=== PATIENT | female | born 1945 | race African-American/Black ===

== ENCOUNTER → 2017-10-02 | Outpatient (CLI) | payer OTHER, MEDICARE ==
[~2017-10-02] MED LIST: ASA5UEC PO; ATENOLOL 100MG100 MG PO; ATIVAN0.5 MG PO; ATORVASTATIN CA40 MG PO; BACTRIM DS TAB1 EACH PO; BENADRYL25 MG PO; FOLIC ACID1 MG PO; LIVALO4 MG PO; LOPRESSOR25 PO; METFORMIN HCL500 MG PO; OTHER; PACERONE 200 M200 M1 PO; PANTOPRAZOLE SO40 M1 PO; PEPCID20 MG PO; TOPROL XL25 MG PO; TRAMADOL 50 MG50 MG PO; VASCEPA1 GM PO; VENTOLIN HFA 1818 GM INH; VITAMIN D3400 UNIT PO; ZYRTEC10 M4 PO
[2017-10-02 12:42] LABS: CREATININE 0.9 mg/dL (0.6-1.0)
== END ==
LOC: LABMALL 11:19 → RAD 11:19
PROVIDERS: Internal Medicine Cardiovascular Disease
DX: Z01.818 Encounter for other preprocedural examination (principal); I73.9 Peripheral vascular disease, unspecified; I71.4 Abdominal aortic aneurysm, without rupture; R06.00 Dyspnea, unspecified

== ENCOUNTER 2017-11-07 16:44 | Inpatient (IN) | payer OTHER, MEDICARE ==
[~2017-11-07] VITALS: Ht 167.6 cm; Wt 72.5 kg
--- NOTE | ~2017-11-07 | 2DMMODE ---
[facility] [address] [place] [address] 2 D/M-MODE ECHOCARDIOGRAM Name: MCCARTHYOSVALDO Room #: 213-P [facility] IN M.R.#: [id number] Admission: 11/07/17 Attend Phys: Jl Johnson, Discharge: Date of : 47 Date of Service: 11/10/17 1229 Report #: [id number] THIS REPORT FOR: //name// APPROVED REPORT Study performed: 11/10/2017 11:25:37 EXAM: Comprehensive 2D, Doppler, and color-flow Echocardiogram Patient Location: Bedside Room #: 213 Status: routine BSA: 1.81 HR: 63 bpm Rhythm: NSR Other Information Study Quality: Adequate Indications Pre-Op Pre-op CABG, NSTEMI, Hx: CAD, Stent, HTN, HLD 2D Dimensions RVDd: 30.48 mm LVEF(%): 52.68 (>50%) IVSd: 10.21 (7-11mm) LVOT Diam: 21.49 (18-24mm) LVDd: 49.28 mm PWd: 11.28 (7-11mm) Ascending Ao: 32.91 (22-36mm) LVDs: 35.91 (25-40mm) Aortic Root: 31.63 mm Roche's LVEF: 52.68 % Volumes Left Atrial Volume (Systole) Single Plane 4CH: 31.65 mL Single Plane 2CH: 34.19 mL LA ESV Index: 23.00 mL/m2 Aortic Valve AoV Peak Nadeem.: 1.02 m/s AO Peak Gr.: 4.18 mmHg LVOT Max P.92 mmHg LVOT Max V: 0.85 m/s PEPE Vmax: 3.03 cm2 Mitral Valve E/A Ratio: 0.9 [facility] [place] [address] 2 D/M-MODE ECHOCARDIOGRAM Name: OSVALDO MCCARTHY Room #: 213-P [facility] IN ..#: [id number] Admission: 11/07/17 Attend Phys: Jl Johnson, Discharge: Date of : 47 Date of Service: 11/10/17 1229 Report #: [id number] MV Decel. Time: 196.74 ms MV E Max Nadeem.: 0.52 m/s MV A Nadeem.: 0.56 m/s MV PHT: 57.06 ms IVRT: 129.18 ms Pulmonary Valve PV Peak Nadeem.: 0.95 m/s PV Peak Gr.: 3.61 mmHg Pulmonary Vein P Vein S: 0.52 m/s P Vein A: 0.25 m/s P Vein D: 0.33 m/s P Vein A Dur.: 129.2 msec P Vein S/D Ratio: 1.58 Tricuspid Valve RAP Estimate: 5.00 mmHg Left Ventricle The left ventricle is normal size. There is normal left ventricular wall thickness. Left ventricular systolic function is borderline. LVEF is 50%. Grade I - abnormal relaxation pattern. Right Ventricle The right ventricle is normal size. The right ventricular systolic function is normal. Atria The left atrium size is normal. The right atrium size is normal. Aortic Valve Aortic valve is calcified. No aortic regurgitation is present. There is no aortic valvular stenosis. Mitral Valve There is mitral annular calcification. Mild mitral regurgitation. No evidence of mitral valve stenosis. Tricuspid Valve The tricuspid valve is normal in structure. Trace tricuspid regurgitation. Unable to assess PA pressure. Pulmonic Valve The pulmonary valve is normal in structure. [place] [address] 2 D/M-MODE ECHOCARDIOGRAM Name: OSVALDO MCCARTHY Dianne Room #: 213-P [facility] IN .R.#: [id number] Admission: 11/07/17 Attend Phys: Jl Johnson, Discharge: Date of : 47 Date of Service: 11/10/17 1229 Report #: [id number] Great Vessels The aortic root is normal in size. The ascending aorta is normal in size. IVC is normal in size and collapses >50% with inspiration. Pericardium There is no pericardial effusion. <Conclusion> The left ventricle is normal size. Left ventricular systolic function is borderline. LVEF is 50%. Grade I - abnormal relaxation pattern. The left atrium size is normal. Aortic valve is calcified. There is no aortic valvular stenosis. Mild mitral regurgitation. Trace tricuspid regurgitation. Unable to assess PA pressure. The aortic root is normal in size. There is no pericardial effusion. <ELECTRONICALLY SIGNED> By: Jl Johnson MD, FACC 11/10/17 1229 1229 1229 Jl Johnson MD, FACC /INF
--- NOTE | ~2017-11-07 | EKG ---
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 No previous ECG available for comparison Electronically Signed On 11-08-2017 12:20:40 CDT by Donavon Marcus [email or web address] <ELECTRONICALLY SIGNED> By: Donavon Marcus MD 11/08/17 1220 2 2 Donavon Marcus MD /CHIQUI
--- NOTE | ~2017-11-07 | CATHLAB ---
[facility] [place] [address] INVASIVE PROCEDURE REPORT Name: OSVALDO MCCARTHY Room #: 242-P [facility] IN ..#: [id number] Admission: 11/07/17 Attend Phys: Jl Johnson, Discharge: Date of : 47 Date of Service: 11/12/17 1436 Report #: [id number] THIS REPORT FOR: //name// APPROVED REPORT Study performed: 11/10/2017 07:35:59 Patient Details Patient Status: In-Patient Room #: 213 The patient is a 72 year-old female Event Personnel Jl Johnson Importer Or Exporter, Arjun Thrasher RN, Tanja Martinez RTR, Dm Mckinnon David Monitor Procedures Performed Art Access - R femoral artery* Left Heart Cath w/or w/o Coronaries [id number] [facility] [address] Initial Mod Sed Same Phys/QHP 5y 883198 Hemostasis with Manual pressure Indication Chest pain Procedure Narrative The Right Groin^ was infiltrated with 1% Lidocaine subcutaneous anesthesia. A PINNACLE 6FR Sheath #[id number] sheath was inserted into the RFA^. Coronary angiography was performed using coronary diagnostic catheters. The right coronary system was accessed and visualized with a JR4 catheter. The left coronary system was accessed and visualized with a JL4 catheter. The left ventricle was accessed and visualized with a Pigtail catheter. Left ventriculogram was performed in 30 degree projection. An aortogram of the abdominal aorta was performed. Pre-demployment femoral angiogram was performed . Hemostasis was obtained with manual pressure following sheath removal without any complications. The patient tolerated the procedure well and there were no complications associated with the procedure. There was no hematoma. Intraoperative Conscious Sedation Sedation start time: 07:48 Case end Time: 08:15 Fentanyl 50 mcg Versed 1.5 mg Fluoro Time: 2.04 minutes Dose: 328 mGy [facility] [place] [address] INVASIVE PROCEDURE REPORT Name: MCCARTHYOSVALDO Room #: 242-P [facility] IN [facility]#: [id number] Admission: 11/07/17 Attend Phys: Jl Johnson, Discharge: Date of : 47 Date of Service: 11/12/17 1436 Report #: [id number] Contrast Type and Amount: Omnipaque 130 ml Hemodynamics The aortic pressure is 111/57 mmHg with a mean of 78 mmHg. The left ventricular pressure is 135/7 mmHg with a mean of mmHg. The left ventricular end diastolic pressure is 21 mmHg. Conclusion #1 left ventricle subtle anterior lateral wall leg EF 50% #2 small infrarenal aortic aneurysm distal aorta at the bifurcation evaluate noninvasively #3 LAD is proximally occluded in the's previously placed stent from 2003. She was a long stent there is faint collateralization from left to left filling. #4 The left main is mildly disease giving rise to the LAD and circumflex #5 circumflex OM has a eccentric lesion proximally of 40-50% at the first OM takeoff. Mild distal disease nondominant system but moderate distribution left to left collaterals to the LAD #6 dominant right coronary artery mild proximal calcification 30% irregularity giving rise to ENOC and PDA PDA has an eccentric 70% ostial lesion there is right to left collateralization of the distal half of the LAD Recommendations and plan of vascular closure by manual protocol. Transfer to CCU would obtain CT surgical consultation here. This diabetic female best served with arterial grafts to LAD and PDA. Hemodynamically stable and pain-free upon transfer <ELECTRONICALLY SIGNED> By: Jl Johnson MD, FACC 11/12/17 1436 1436 143 Jl Johnson MD, FACC /INF
--- NOTE | ~2017-11-07 | EKG ---
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 : 1945 Requested By: Christel Urena Order Number: [id number] MD: Sal Villalobos Measurements Intervals [place] Rate: 61 P: 46 CT: 154 QRS: 48 QRSD: 117 T: 89 QT: 489 QTc: 493 Interpretive Statements Sinus rhythm Nonspecific intraventricular conduction delay Probable anteroseptal infarct, recent ST elevation, inferior leads Lateral leads are also involved Compared to ECG 11/09/2017 09:37:05 No significant change was found Electronically Signed On 11-11-2017 8:21:50 CDT by Sal Villalobos [email or web address] <ELECTRONICALLY SIGNED> By: Sal Villalobos MD, [facility] 11/11/17 0821 1 1 Sal Villalobos MD, [facility] /EPI
--- NOTE | ~2017-11-07 | EKG ---
[address] [address] ELECTROCARDIOGRAM REPORT Name: OSVALDO MCCARTHY Room #: 213- ADM IN M.R.#: [id number] Admission: 11/07/17 Attend Phys: Jl Johnson MD, Discharge: Date of : 47 Report #: [id number] THIS REPORT FOR: //name// [facility] Test Date: 2017-11-07 Test Time: 19:09:59 Pat Name: OSVALDO MCCARTHY Department: Room: 213 Gender: F Hospitality Ambassador: Krista ARCE : 1945 Requested By: Jl Johnson Order Number: [id number] MD: Donavon Marcus Measurements Intervals [place] Rate: 74 P: -14 VA: 141 QRS: 26 QRSD: 86 T: 108 QT: 390 QTc: 433 Interpretive Statements Sinus rhythm Anteroseptal infarct, age indeterminate Minimal ST elevation, inferior leads No previous ECG available for comparison Electronically Signed On 11-08-2017 12:10:49 CDT by Donavon Marcus [email or web address] <ELECTRONICALLY SIGNED> By: Donavon Marcus MD 11/08/17 1210 1909 08 Donavon Marcus MD /EPI
--- NOTE | ~2017-11-07 | EKG ---
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 Electronically Signed On 11-12-2017 7:45:32 CDT by Donavon Marcus [email or web address] <ELECTRONICALLY SIGNED> By: Donavon Marcus MD 11/12/17 0745 0631 0 Donavon Marcus MD /CHIQUI
--- NOTE | ~2017-11-07 | O ---
[facility] [place] [address] OPERATIVE REPORT Name: OSVALDO MCCARTHY Room #: 150-12 ADM IN M.R.#: [id number] Admission: 11/07/17 Attend Phys: Jl Johnson MD, Discharge: Date of : 47 Report #: [id number] THIS REPORT FOR: //name// CC: Jl Sullivan DATE OF SERVICE: 11/11/2017 PREOPERATIVE DIAGNOSES: 1. Coronary artery disease. 2. Unstable angina. FINAL DIAGNOSES: 1. Coronary artery disease. 2. Unstable angina. OPERATIVE PROCEDURE PERFORMED: Coronary artery bypass grafting x 2 with left internal mammary artery to left anterior descending, saphenous vein graft to the posterior descending artery. SURGEON: Mati Miranda MD ASSISTANTS: Dawood Torres SA and Aylin Pollock SA. ANESTHESIA: General. OPERATIVE INDICATIONS: The patient is a 72-year-old female with known history of previous coronary artery disease, having undergone a stent to the LAD approximately 18 years ago. The patient has recently presented with symptoms consistent with unstable angina. She did see her primary care physician and had an outpatient troponin level drawn, which was slightly elevated. She was subsequently hospitalized and underwent evaluation with left heart catheterization suggesting evidence of 2-vessel coronary artery disease involving the LAD and the takeoff of the PDA. She is brought to the operating room now for coronary artery bypass grafting after informed consent has been obtained. OPERATIVE SUMMARY: The patient was brought to the operating room, placed on the OR table in supine position after anesthesia was induced via general endotracheal route. Monitoring lines had been positioned, the patient was prepped and draped in sterile fashion with chlorhexidine. A median sternotomy incision was made. Left internal mammary artery was harvested in standard fashion. Concurrently, saphenous vein was harvested from the left lower extremity using endoscopic techniques. We then opened the pericardium and systemically anticoagulated the patient with heparin. Cannulae were placed in ascending aorta and the right atrium. An antegrade cardioplegia cannula was [facility] [address] [place] [address] OPERATIVE REPORT Name: OSVALDO MCCARTHY [facility]#: [id number] Admission: 11/07/17 Attend Phys: Jl Johnson MD, Discharge: Date of : 47 Report #: [id number]. Cardiopulmonary bypass was begun and under low flow conditions the aorta was cross clamped, the heart was arrested with cold antegrade cardioplegia approximately 1200 mL. This was augmented with topical ice slush. Diastolic arrest was achieved and maintained throughout this operation with intermittent doses of cold antegrade cardioplegia as well as cardioplegia given down grafts and topical ice slush. We first opened up the posterior descending coronary artery. It is about a 1.8 mm vessel. We were able to pass a 1.5 mm probe proximally into the right coronary artery. We could tell there was stenosis present, but the probe was able to be passed in the right coronary artery from the PDA. We then constructed a distal anastomosis in end-to-side fashion with 7-0 Prolene utilizing the reverse saphenous vein graft. Next, we dissected the LAD. It was intramyocardial in its mid segment, so we opened it at the distal aspect of its mid segment. This was a large vessel at this site, about 2 mm in size. The mammary was brought on the field and prepared. It had excellent flow in it. The anastomosis was carried out in end-to-side fashion with 7-0 Prolene and the pedicle was tacked to the epicardium with 6-0 Prolene. We then constructed the proximal anastomosis of the saphenous vein graft to the ascending aorta using 6-0 Prolene after a 4.8 punch aortotomy was created. We then gave warm cardioplegia antegrade taking care to deair the ascending aorta and the vein graft. Under low flow conditions the aortic crossclamp was released to begin the period of reperfusion. The patient was rewarmed to 37 degree centigrade and 3 successive doses of calcium and a single dose of magnesium were given over 3-5 minute intervals. Atrial and ventricular pacing wires were placed. The patient was initially atrial lead paced at a rate of 80 beats per minute. After suitable period of reperfusion, the lungs were reinflated. The patient was weaned from cardiopulmonary bypass without inotropic support. Protamine was given to reverse the heparin, decannulation was effected. Once satisfactory hemostasis was achieved, we placed two 32-Turkmen chest tubes in anterior mediastinum and 24 Maynor in the left pleural space. They were all brought through separate stab incisions. The sternum was closed with #7 wire. The fascia, subcutaneous and skin were closed in multiple layers with absorbable suture. The procedure completed. The patient was taken to the ICU in stable condition. Cardiopulmonary bypass time and crossclamp times are not available to me at the time of this dictation. By: 1135 [id number] /nt
--- NOTE | ~2017-11-07 | EKG ---
[address] [address] ELECTROCARDIOGRAM REPORT Name: OSVALDO MCCARTHY Room #: 242-P [facility] IN .R.#: [id number] Admission: 11/07/17 Attend Phys: Jl Johnson MD, Discharge: Date of : 47 Report #: [id number] THIS REPORT FOR: //name// [facility] Test Date: 2017-11-11 Test Time: 16:35:14 Pat Name: OSVALDO MCCARTHY Department: Room: [facility] Gender: F Referral Clerk: Krista ARCE : 1945 Requested By: Christel Urena Order Number: [id number] MD: Sal Villalobos Measurements Intervals [place] Rate: 78 P: 71 MA: 155 QRS: 57 QRSD: 109 T: 121 QT: 444 QTc: 506 Interpretive Statements Sinus rhythm Probable anterolateral infarct, recent Abnormal T, consider ischemia, lateral leads Minimal ST elevation, inferior leads Prolonged QT interval Compared to ECG 11/11/2017 06:12:11 Lateral T wave inversion is more pronounced Electronically Signed On 11-11-2017 16:47:50 CDT by Sal Villalobos [email or web address] <ELECTRONICALLY SIGNED> By: Sal Villalobos MD, [facility] 11/11/17 1647 1635 1635 Sal Villalobos MD, [facility] /EPI
--- NOTE | ~2017-11-07 | H ---
[facility] [place] [address] HISTORY AND PHYSICAL Name: OSVALDO MCCARTHY Room #: 242-P ADM IN M.R.#: [id number] Admission: 11/07/17 Attend Phys: Jl Johnson MD, Discharge: Date of : 47 Report #: [id number] THIS REPORT FOR: //name// CC: Jl Sullivan MD DATE OF SERVICE: 11/07/2017 HISTORY OF PRESENT ILLNESS: The patient is a 71-year-old female well known to myself. She has had some recurrent chest pain, pressure, and shortness of breath. We had evaluated her in the office a couple of weeks ago with an echo Doppler that was unchanged and no EKG changes. My understanding is that she had an ER visit last weekend and was ruled out and sent home. She is still having intermittent shortness of breath and dyspnea and this is concerning. This is similar to what she had prior to her LAD stent that was placed in [facility] in 1999. Stress test was last year that was negative. There has not been a recent stress test. In any event, an outpatient troponin was drawn and it was 1.1, the troponin T. Dr. Sullivan had drawn some laboratory work and that lab is in the system. I will admit her today because of the abnormal lab and to repeat the troponin and EKG. She is pain free except for marked decrease in dyspnea. LABORATORY DATA: H and H is 14 and 43. Amylase was 44, lipase was 44. Creatinine was 22. Glucose mildly elevated 216. Liver function tests were normal. The potassium was 4.0. Troponin T was reported by Dr. Sullivan. It is noted here 1.18, which is elevated. PAST MEDICAL HISTORY: Positive for coronary artery disease with a stent to the LAD in 1999, hypertension, hypercholesterolemia, right total hip arthroplasty, tubal ligation, some DJD, some PSVT with minimal recurrence, hypertension, hypercholesterolemia. MEDICATIONS: Atenolol 100, folic acid probiotic and 1 capsule b.i.d. SOCIAL HISTORY: She is , lot of stress with children who are adopted and older. 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 No caffeine. No tobacco, no alcohol. FAMILY HISTORY: Mother had colon cancer. REVIEW OF SYSTEMS: Essentially negative except for as stated above, some intermittent constipation. ALLERGIES: ERYTHROMYCIN, KEFLEX, AND PENICILLINS. [facility] [address] [place] [address] HISTORY AND PHYSICAL Name: OSVALDO MCCARTHY Room #: 242-P [facility]#: [id number] Admission: 11/07/17 Attend Phys: Jl Johnson MD, Discharge: Date of : 47 Report #: [id number] PHYSICAL EXAMINATION: GENERAL: Pleasant and alert. VITAL SIGNS: Blood pressure was 130/84, pulse is 60. HEENT: Eyes reveal xanthelasmas. Pharynx is clear. NECK: Shows preserved upstrokes without JVD or bruits. LUNGS: Clear. CARDIOVASCULAR: Regular rate and rhythm, S1 and S2, without murmur or gallop. ABDOMEN: Soft, slightly tender in the epigastric. EXTREMITIES: Have no edema. Distal pulses were intact. NEUROLOGIC: Nonfocal. SKIN: Warm and dry without xanthoma or ulcer. MUSCULOSKELETAL: No gross joint deformity. ASSESSMENT: 1. Recurrent chest pain consistent with angina (elevated troponin T), possible non-ST elevation myocardial infarction. 2. Hypertension. 3. Hypercholesterolemia. 4. Paroxysmal supraventricular tachycardia. RECOMMENDATIONS AND PLAN: We will continue the medications. I am repeating laboratory work including troponin, EKG now in the a.m. She is pain free. We will add aspirin to the regimen and plan on cardiac catheterization Friday a.m. to delineate the anatomy. With these multiple recurrent admissions and history, would definitely need to delineate the anatomy. If she would have recurrent pain and pressure, certainly could proceed on with angiography sooner. Thank you for asking me to assist in the care of this patient. <ELECTRONICALLY SIGNED> By: Jl Johnson MD, FACC 11/11/17 1302 1834 190 Jl Johnson MD, FACC /nt
--- NOTE | ~2017-11-07 | EKG ---
[address] [address] ELECTROCARDIOGRAM REPORT Name: OSVALDO MCCARTHY Dianne Room #: 213- ADM IN M.R.#: [id number] Admission: 11/07/17 Attend Phys: Jl Johnson MD, Discharge: Date of : 47 Report #: [id number] THIS REPORT FOR: //name// [facility] Test Date: 2017-11-09 Test Time: 09:37:05 Pat Name: OSVALDO MCCARTHY Department: Room: 213 Gender: F Gravity Manager: EMEKA : 1945 Requested By: Michelle Benítez Order Number: [id number] MD: Donavon Marcus Measurements Intervals [place] Rate: 70 P: 0 AK: 164 QRS: 42 QRSD: 125 T: 101 QT: 463 QTc: 500 Interpretive Statements Sinus rhythm Probable anterior infarct, age indeterminate Minimal ST elevation, inferior leads Lateral leads are also involved Compared to ECG 11/08/2017 09:13:32 No significant changes Electronically Signed On 11-09-2017 19:53:59 CDT by Donavon Marcus [email or web address] <ELECTRONICALLY SIGNED> By: Donavon Marcus MD 11/09/17 1953 0937 Donavon Marcus MD /EPI
[2017-11-07 19:37] LABS: HEMOGLOBIN 13.6 gm/dL (12.0-15.0); MCH 30.3 pg (26.0-34.0); MCHC 33.9 g/dL (28.0-37.0); MCV 89.3 fL (80.0-100.0); RBC 4.48 mil/uL (4.20-5.00); RDW 12.7 % (10.5-14.5); WBC 5.6 thou/uL (4.0-11.0)
[2017-11-07 19:43] VITALS: BP 97/60
[2017-11-07 19:55] LABS: CALCIUM 9.4 mg/dL (8.5-10.1); CREATININE 1.1 mg/dL (0.6-1.0); POTASSIUM 3.7 mmol/L (3.5-5.1)
[2017-11-07 19:56] LABS: TROPONIN-I 1.56 ng/mL (<0.06)
[2017-11-07] MEDS ORDERED: ATIVAN0.5 MG PO (20:38)
[2017-11-07] MEDS ORDERED: BACTRIM DS TAB1 EACH PO (20:41)
[2017-11-07] MEDS ORDERED: METFORMIN HCL500 MG PO (20:43)
[2017-11-07] MEDS ORDERED: VASCEPA1 GM PO (20:46)
[2017-11-07] MEDS ORDERED: LIVALO4 MG PO (20:47)
[2017-11-07] MEDS ORDERED: ATENOLOL 100MG100 MG PO (20:53)
[2017-11-07] MEDS ORDERED: BENADRYL25 MG PO (20:57)
[2017-11-07] MEDS ORDERED: ZYRTEC10 M4 PO (20:58)
[2017-11-07] MEDS ORDERED: FOLIC ACID1 MG PO (21:00)
[2017-11-07] MEDS ORDERED: VITAMIN D3400 UNIT PO (21:02)
[2017-11-07] MEDS ORDERED: PEPCID20 MG PO (21:05)
[2017-11-07 23:05] VITALS: BP 100/67
[2017-11-08 04:54] VITALS: BP 130/79
[2017-11-08 07:55] VITALS: BP 113/64
[2017-11-08 11:45] VITALS: BP 116/67
[2017-11-08 15:45] VITALS: BP 127/73
[2017-11-08 19:22] VITALS: BP 105/59
[2017-11-09 00:45] VITALS: BP 119/70
[2017-11-09 04:57] VITALS: BP 117/67
[2017-11-09 07:30] VITALS: BP 134/114
[2017-11-09 08:38] LABS: GLYCOHEMOGLOBIN (HGB A1C) 10.9 % (4.8-5.6)
[2017-11-09 12:05] VITALS: BP 105/65
[2017-11-09 15:30] VITALS: BP 107/63
[2017-11-09 19:50] VITALS: BP 109/66
[2017-11-10] VITALS (11 sets, daily range): BP systolic 91–140; BP diastolic 55–91
[2017-11-10 05:32] LABS: CALCIUM 8.9 mg/dL (8.5-10.1); POTASSIUM 3.8 mmol/L (3.5-5.1)
[2017-11-10 20:28] LABS: URINE BILIRUBIN NEGATIVE (Negative); URINE BLOOD NEGATIVE (Negative); URINE CLARITY CLEAR; URINE COLOR YELLOW; URINE GLUCOSE-RANDOM* NEGATIVE (Negative); URINE KETONES NEGATIVE (Negative); URINE LEUKOCYTES-REFLEX NEGATIVE (Negative); URINE NITRITE-REFLEX NEGATIVE (Negative); URINE PROTEIN (DIPSTICK) NEGATIVE (Negative); URINE SPECIFIC GRAVITY 1.015 (1.005-1.035); URINE UROBILINOGEN 0.2 E.U./dl (0.2-1.0)
[2017-11-11] VITALS (40 sets, daily range): BP systolic 81–186; BP diastolic 44–102
[2017-11-11 05:08] LABS: ABSOLUTE NEUTROPHILS 2.7 thou/uL (1.4-8.2); BASOPHILS 0.7 % (0.0-2.0); EOSINOPHILS 2.5 % (0.0-3.0); HEMATOCRIT 37.6 % (37.0-47.0); HEMOGLOBIN 12.6 gm/dL (12.0-15.0); LYMPHOCYTES 33.6 % (24.0-44.0); MCH 30.3 pg (26.0-34.0); MCHC 33.5 g/dL (28.0-37.0); MCV 90.3 fL (80.0-100.0); MONOCYTES 6.9 % (1.0-8.0); PLATELET COUNT 170 thou/uL (150-400); POLYS 56.3 % (36.0-66.0); RBC 4.17 mil/uL (4.20-5.00); WBC 4.8 thou/uL (4.0-11.0)
[2017-11-11 05:34] LABS: ALBUMIN 2.4 g/dL (3.4-5.0); TOTAL BILIRUBIN 0.5 mg/dL (<0.1-1.0); TOTAL PROTEIN 6.1 g/dL (6.4-8.2)
[2017-11-11 07:00] LABS: LARGE PLATELETS OCCASIONAL; POLYCHROMASIA 1+
[2017-11-11 11:00] LABS: MCHC 34.5 g/dL (28.0-37.0); MCV 90.1 fL (80.0-100.0); RBC 2.62 mil/uL (4.20-5.00); RDW 12.7 % (10.5-14.5); WBC 4.5 thou/uL (4.0-11.0)
[2017-11-11 11:08] LABS: HEMOGLOBIN 8.1 gm/dL (12.0-15.0)
[2017-11-11 11:09] LABS: HEMATOCRIT 23.6 % (37.0-47.0)
[2017-11-11 11:13] LABS: INR 1.5
[2017-11-11 11:17] LABS: APTT 33.1 Seconds (24.5-32.8); FIBRINOGEN 256.4 mg/dL (210-360); PROTIME 15.6 Seconds (9.3-11.4)
[2017-11-11 11:32] LABS: POC BE 3 mmol/L (-2.0 to +3.0); POC CA IONIZED 4.4 mg/dL (4.5-5.3); POC GLUCOSE 161 mg/dL (70-99); POC HCO3 26.7 mmol/L (22.0-26.0); POC HEMOGLOBIN 9.9 g/dL (12.0-15.0); POC POTASSIUM 3.6 mmol/L (3.5-5.1); POC SODIUM 139 mmol/L (136-145); POC pCO2 36.9 mmHg (35.0-45.0); POC pH 7.468 (7.360-7.450)
[2017-11-11 11:32] LABS: POC BE 1 mmol/L (-2.0 to +3.0); POC CA IONIZED 4.1 mg/dL (4.5-5.3); POC GLUCOSE 144 mg/dL (70-99); POC HCO3 25.8 mmol/L (22.0-26.0); POC HEMOGLOBIN 8.2 g/dL (12.0-15.0); POC POTASSIUM 4.1 mmol/L (3.5-5.1); POC SODIUM 140 mmol/L (136-145); POC pCO2 38.8 mmHg (35.0-45.0)
[2017-11-11 11:32] LABS: POC BE 0 mmol/L (-2.0 to +3.0); POC CA IONIZED 3.7 mg/dL (4.5-5.3); POC GLUCOSE 140 mg/dL (70-99); POC HCO3 24.7 mmol/L (22.0-26.0); POC HEMOGLOBIN 8.2 g/dL (12.0-15.0); POC POTASSIUM 4.6 mmol/L (3.5-5.1); POC SODIUM 139 mmol/L (136-145); POC pCO2 39.2 mmHg (35.0-45.0); POC pH 7.409 (7.360-7.450)
[2017-11-11 11:32] LABS: POC BE 1 mmol/L (-2.0 to +3.0); POC CA IONIZED > 8.9 mg/dL (4.5-5.3); POC GLUCOSE 137 mg/dL (70-99); POC HCO3 26.3 mmol/L (22.0-26.0); POC HEMOGLOBIN 7.5 g/dL (12.0-15.0); POC POTASSIUM 4.5 mmol/L (3.5-5.1); POC SODIUM 137 mmol/L (136-145); POC pCO2 46.2 mmHg (35.0-45.0); POC pH 7.364 (7.360-7.450)
[2017-11-11 11:32] LABS: POC BE -3 mmol/L (-2.0 to +3.0); POC CA IONIZED 3.9 mg/dL (4.5-5.3); POC GLUCOSE 138 mg/dL (70-99); POC HCO3 21.9 mmol/L (22.0-26.0); POC HEMOGLOBIN 8.2 g/dL (12.0-15.0); POC POTASSIUM 4.4 mmol/L (3.5-5.1); POC SODIUM 139 mmol/L (136-145); POC pCO2 36.8 mmHg (35.0-45.0); POC pH 7.382 (7.360-7.450)
[2017-11-11 11:32] LABS: POC BE 4 mmol/L (-2.0 to +3.0); POC CA IONIZED 4.4 mg/dL (4.5-5.3); POC GLUCOSE 157 mg/dL (70-99); POC HCO3 26.8 mmol/L (22.0-26.0); POC HEMOGLOBIN 10.2 g/dL (12.0-15.0); POC POTASSIUM 3.7 mmol/L (3.5-5.1); POC SODIUM 139 mmol/L (136-145); POC pCO2 31.2 mmHg (35.0-45.0); POC pH 7.542 (7.360-7.450)
[2017-11-11 11:37] LABS: POC BE 3 mmol/L (-2.0 to +3.0); POC CA IONIZED 6.2 mg/dL (4.5-5.3); POC GLUCOSE 117 mg/dL (70-99); POC HCO3 25.3 mmol/L (22.0-26.0); POC HEMOGLOBIN 8.8 g/dL (12.0-15.0); POC POTASSIUM 3.7 mmol/L (3.5-5.1); POC SODIUM 140 mmol/L (136-145); POC pH 7.533 (7.360-7.450)
[2017-11-11 11:37] LABS: POC BE 3 mmol/L (-2.0 to +3.0); POC CA IONIZED 8.2 mg/dL (4.5-5.3); POC GLUCOSE 132 mg/dL (70-99); POC HCO3 27.2 mmol/L (22.0-26.0); POC HEMOGLOBIN 7.1 g/dL (12.0-15.0); POC POTASSIUM 4.1 mmol/L (3.5-5.1); POC SODIUM 138 mmol/L (136-145); POC pCO2 38.6 mmHg (35.0-45.0); POC pH 7.455 (7.360-7.450)
[2017-11-11 12:10] LABS: MCHC 34.8 g/dL (28.0-37.0); MCV 89.2 fL (80.0-100.0); RBC 3.45 mil/uL (4.20-5.00); RDW 12.9 % (10.5-14.5); WBC 7.4 thou/uL (4.0-11.0)
[2017-11-11 12:15] LABS: HEMATOCRIT 30.8 % (37.0-47.0); HEMOGLOBIN 10.7 gm/dL (12.0-15.0)
[2017-11-11 12:23] LABS: CREATININE 0.7 mg/dL (0.6-1.0); MAGNESIUM 2.4 mg/dL (1.8-2.4); POTASSIUM 3.6 mmol/L (3.5-5.1)
[2017-11-11 12:24] LABS: CALCIUM 11.3 mg/dL (8.5-10.1)
[2017-11-11 12:25] LABS: APTT 32.2 Seconds (24.5-32.8); INR 1.2; PROTIME 12.7 Seconds (9.3-11.4)
[2017-11-11 12:38] LABS: BE(vivo) -1.3 mmol/L (-2 to +3); PCO2 32.9 mmHg (35.0-45.0); PO2 442.6 mmHg (80.0-100.0); pH 7.444 (7.360-7.450); sO2 99.9 % (92.0-98.0)
[2017-11-11 14:27] LABS: MAGNESIUM 1.9 mg/dL (1.8-2.4)
[2017-11-11 16:20] LABS: HCO3 22.4 mmol/L (22.0-26.0); PO2 205.9 mmHg (80.0-100.0); pH 7.449 (7.360-7.450); sO2 99.5 % (92.0-98.0)
[2017-11-11 20:22] LABS: BE(vivo) 0.6 mmol/L (-2 to +3); HCO3 24.4 mmol/L (22.0-26.0); PCO2 36.2 mmHg (35.0-45.0); PO2 190.7 mmHg (80.0-100.0); pH 7.446 (7.360-7.450); sO2 99.4 % (92.0-98.0)
[2017-11-11 21:17] LABS: BE(vivo) -3.2 mmol/L (-2 to +3); HCO3 22.2 mmol/L (22.0-26.0); PCO2 41.1 mmHg (35.0-45.0); PO2 107.3 mmHg (80.0-100.0); sO2 97.7 % (92.0-98.0)
[2017-11-12] VITALS (14 sets, daily range): BP systolic 76–107; BP diastolic 47–93
[2017-11-12 05:42] LABS: CREATININE 0.8 mg/dL (0.6-1.0); MAGNESIUM 1.9 mg/dL (1.8-2.4); POTASSIUM 3.8 mmol/L (3.5-5.1)
[2017-11-12 05:43] LABS: CALCIUM 8.8 mg/dL (8.5-10.1)
[2017-11-12 05:47] LABS: HEMATOCRIT 31.5 % (37.0-47.0); HEMOGLOBIN 10.8 gm/dL (12.0-15.0); MCH 30.8 pg (26.0-34.0); MCHC 34.2 g/dL (28.0-37.0); MCV 90.2 fL (80.0-100.0); RBC 3.5 mil/uL (4.20-5.00); RDW 12.9 % (10.5-14.5)
[2017-11-13] VITALS (24 sets, daily range): BP systolic 80–116; BP diastolic 48–69
[2017-11-13 05:51] LABS: CALCIUM 8.5 mg/dL (8.5-10.1)
[2017-11-14] VITALS (8 sets, daily range): BP systolic 95–119; BP diastolic 44–70
[2017-11-14 05:11] LABS: CALCIUM 8.4 mg/dL (8.5-10.1); CREATININE 0.9 mg/dL (0.6-1.0); POTASSIUM 3.2 mmol/L (3.5-5.1)
[2017-11-14] MEDS ORDERED: TOPROL XL25 MG PO (08:06)
[2017-11-14] MEDS ORDERED: ASA5UEC PO (08:06)
[2017-11-14] MEDS ORDERED: PACERONE 200 M200 M1 PO (08:06)
[2017-11-15 04:43] VITALS: BP 113/68
[2017-11-15 08:35] VITALS: BP 104/63
[2017-11-15 15:46] VITALS: BP 123/56
[2017-11-15 19:11] VITALS: BP 102/63
[2017-11-15 23:58] VITALS: BP 102/61
[2017-11-16 05:01] VITALS: BP 121/75
[2017-11-16 10:42] VITALS: BP 119/58
[2017-11-16 12:05] LABS: CALCIUM 8.8 mg/dL (8.5-10.1); CREATININE 0.9 mg/dL (0.6-1.0)
[2017-11-16 12:07] VITALS: BP 116/62
[2017-11-16 19:47] VITALS: BP 121/67
[2017-11-17 03:57] VITALS: BP 119/82
[2017-11-17 07:50] VITALS: BP 104/68
[2017-11-17 12:30] VITALS: BP 118/69
[2017-11-17 13:26] VITALS: BP 119/58
[2017-11-17 17:27] VITALS: BP 97/41
[2017-11-17 19:04] VITALS: BP 97/52
[2017-11-18 03:39] VITALS: BP 117/63
[2017-11-18 04:13] LABS: HEMATOCRIT 33.5 % (37.0-47.0); HEMOGLOBIN 11.1 gm/dL (12.0-15.0); MCH 30.2 pg (26.0-34.0); MCHC 33.1 g/dL (28.0-37.0); MCV 91.1 fL (80.0-100.0); RBC 3.68 mil/uL (4.20-5.00); RDW 13.3 % (10.5-14.5); WBC 7.8 thou/uL (4.0-11.0)
[2017-11-18 04:18] LABS: ALBUMIN 2.7 g/dL (3.4-5.0); CALCIUM 9.3 mg/dL (8.5-10.1); CREATININE 1.2 mg/dL (0.6-1.0); TOTAL BILIRUBIN 0.9 mg/dL (<0.1-1.0); TOTAL PROTEIN 6.5 g/dL (6.4-8.2)
[2017-11-18 07:09] VITALS: BP 118/63
[2017-11-18] MEDS ORDERED: PANTOPRAZOLE SO40 M1 PO (08:17)
[2017-11-18] MEDS ORDERED: ATORVASTATIN CA40 MG PO (08:17)
[2017-11-18] MEDS ORDERED: LOPRESSOR25 PO (08:17)
[2017-11-18] MEDS ORDERED: OTHER (08:30)
[2017-11-18 09:39] VITALS: BP 119/58
== END 2017-11-18 11:30 | disposition home health service (06) | DRG 233 ==
LOC: 2N 16:44 → TBA 11-11 09:48 → ICU 11-11 12:50 → 2N 11-13 15:24 → ENTRNSPT 11-18 10:57 → EDTRNSPTSTS 11-18 10:59 → 2N 11-18 11:30
PROVIDERS: Internal Medicine; Internal Medicine Cardiovascular Disease; Nurse Practitioner; Thoracic Surgery (Cardiothoracic Vascular Surgery)
PROC: 06BQ4ZZ Excision of Left Saphenous Vein, Percutaneous Endoscopic Approach (ICD-10-PCS; principal; 2017-11-11)
PROC: 021009W Bypass Coronary Artery, One Artery from Aorta with Autologous Venous Tissue, Open Approach (ICD-10-PCS; principal; 2017-11-11)
PROC: 5A1221Z Performance of Cardiac Output, Continuous (ICD-10-PCS; principal; 2017-11-11)
PROC: 02100Z9 Bypass Coronary Artery, One Artery from Left Internal Mammary, Open Approach (ICD-10-PCS; principal; 2017-11-11)
PROC: B2111ZZ Fluoroscopy of Multiple Coronary Arteries using Low Osmolar Contrast (ICD-10-PCS; 2017-11-12)
PROC: B2151ZZ Fluoroscopy of Left Heart using Low Osmolar Contrast (ICD-10-PCS; 2017-11-12)
PROC: 4A023N7 Measurement of Cardiac Sampling and Pressure, Left Heart, Percutaneous Approach (ICD-10-PCS; 2017-11-12)
DX: I21.4 Non-ST elevation (NSTEMI) myocardial infarction (principal); E43 Unspecified severe protein-calorie malnutrition; I47.1 Supraventricular tachycardia; D62 Acute posthemorrhagic anemia; J98.11 Atelectasis; Z96.641 Presence of right artificial hip joint; E11.65 Type 2 diabetes mellitus with hyperglycemia; E87.6 Hypokalemia; I25.110 Atherosclerotic heart disease of native coronary artery with unstable angina pectoris; E78.5 Hyperlipidemia, unspecified; E11.9 Type 2 diabetes mellitus without complications; Z88.1 Allergy status to other antibiotic agents; Z88.0 Allergy status to penicillin; Z88.8 Allergy status to other drugs, medicaments and biological substances; Z79.899 Other long term (current) drug therapy; Z80.0 Family history of malignant neoplasm of digestive organs; Z82.49 Family history of ischemic heart disease and other diseases of the circulatory system; Z79.82 Long term (current) use of aspirin; Z68.25 Body mass index [BMI] 25.0-25.9, adult
CPT/HCPCS: 10081; 10204; 10797; 47297; 50010; 50249; 50409; 50456; 50497; 50662; 50668; 51301; 52131; 52314; 53327; 53358; 54118; 55415; 56524; 56525; 56526; 56527; 56528; 56531; 56534; 57093; 64029; 65003; 65020; 65043; 65045; 83006

== ENCOUNTER 2017-12-03 14:35 | Emergency (ER) | payer OTHER, MEDICARE ==
[~2017-12-03] VITALS: Ht 167.6 cm; Wt 70.3 kg
--- NOTE | ~2017-12-03 | EKG ---
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: : 1945 Requested By: Misti Vallecillo Order Number: [id number] MD: Donavon Marcus Measurements Intervals [place] Rate: 84 P: 25 [place]: 150 QRS: 32 QRSD: 106 T: 7 QT: 427 QTc: 505 Interpretive Statements Sinus rhythm Probable left atrial enlargement Anterior infarct, age indeterminate Compared to ECG 11/12/2017 06:31:21 Myocardial infarct finding now present T-wave abnormality no longer present Electronically Signed On 12-03-2017 17:06:48 CDT by Donavon Marcus [email or web address] <ELECTRONICALLY SIGNED> By: Donavon Marcus MD 05/04/14 1706 00 00 Donavon Marcus MD /CHIQUI
[~2017-12-03 14:35] MED LIST changes: -TRAMADOL 50 MG50 MG PO; -VENTOLIN HFA 1818 GM INH
[2017-12-03 15:06] LABS: BASOPHILS 1.3 % (0.0-2.0); EOSINOPHILS 2.2 % (0.0-3.0); HEMATOCRIT 32.8 % (37.0-47.0); LYMPHOCYTES 27.5 % (24.0-44.0); MCH 30.1 pg (26.0-34.0); MCHC 33.5 g/dL (28.0-37.0); MCV 89.9 fL (80.0-100.0); MONOCYTES 9.1 % (1.0-8.0); PLATELET COUNT 243 thou/uL (150-400); POLYS 59.9 % (36.0-66.0); RBC 3.65 mil/uL (4.20-5.00); RDW 14.2 % (10.5-14.5); WBC 4.9 thou/uL (4.0-11.0)
[2017-12-03 15:22] LABS: ANION GAP 7 mmol/L (7-16); BUN 12 mg/dL (7-18); CALCIUM 8.9 mg/dL (8.5-10.1); CHLORIDE 105 mmol/L (98-107); CO2 26 mmol/L (21-32); CREATININE 1.2 mg/dL (0.6-1.0); GLUCOSE 97 mg/dL (74-106); POTASSIUM 3.5 mmol/L (3.5-5.1); SODIUM 138 mmol/L (136-145)
[2017-12-03 15:30] LABS: SGOT 12 U/L (15-37); SGPT 14 U/L (30-65); TOTAL BILIRUBIN 0.6 mg/dL (<0.1-1.0); TOTAL PROTEIN 7.1 g/dL (6.4-8.2); TROPONIN-I < 0.04 ng/mL (<0.06)
[2017-12-03] MEDS ORDERED: VENTOLIN HFA 1818 GM INH (18:20)
[2017-12-05 23:17] LABS: ADENOVIRUS Negative (Negative); INFLUENZA A Negative (Negative); INFLUENZA B Negative (Negative); METAPNEUMOVIRUS Negative (Negative); PARAINFLUENZA 1 Negative (Negative); PARAINFLUENZA 2 Negative (Negative); PARAINFLUENZA 3 Negative (Negative); RHINOVIRUS Negative (Negative); RSV A Negative (Negative); RSV B Negative (Negative)
== END 2017-12-03 19:16 | disposition home or self-care (01) ==
LOC: ER 14:35
PROVIDERS: Physician Assistant
DX: R50.82 Postprocedural fever (principal); Z95.1 Presence of aortocoronary bypass graft; R06.02 Shortness of breath; B34.9 Viral infection, unspecified; I10 Essential (primary) hypertension; E78.5 Hyperlipidemia, unspecified; E11.9 Type 2 diabetes mellitus without complications; I25.10 Atherosclerotic heart disease of native coronary artery without angina pectoris; Z88.0 Allergy status to penicillin; Z88.1 Allergy status to other antibiotic agents

== ENCOUNTER → 2017-12-08 | Outpatient (CLI) | payer OTHER, MEDICARE ==
[~2017-12-08] MED LIST changes: +TRAMADOL 50 MG50 MG PO; +VENTOLIN HFA 1818 GM INH
[2017-12-08 09:49] LABS: HEMATOCRIT 36.8 % (37.0-47.0); HEMOGLOBIN 12.4 gm/dL (12.0-15.0); MCH 30.2 pg (26.0-34.0); MCHC 33.7 g/dL (28.0-37.0); MCV 89.6 fL (80.0-100.0); RBC 4.11 mil/uL (4.20-5.00); RDW 14.2 % (10.5-14.5)
[2017-12-08 10:01] LABS: CALCIUM 9.1 mg/dL (8.5-10.1); CREATININE 1.2 mg/dL (0.6-1.0); POTASSIUM 4.3 mmol/L (3.5-5.1)
[2017-12-08 10:02] LABS: INR 1.1; PROTIME 10.9 Seconds (9.3-11.4)
[2017-12-08 11:21] LABS: CLARITY TURBID; COLOR RED; SOURCE LEFT CHEST; TOTAL VOLUME 63 mL
[2017-12-08 12:26] LABS: BF NUCLEATED CELLS 1085; BF RBC 32934
[2017-12-08 14:03] LABS: SOURCE LEFT CHEST
[2017-12-08 14:24] LABS: BF MACROPHAGE 49; BF NEUTROPHILS 2
[2017-12-09 09:14] LABS: BODY FLUID AMYLASE 40 U/L (()); BODY FLUID GLUCOSE 143 mg/dL (()); BODY FLUID LDH 207 IU/L (()); BODY FLUID PROTEIN 4.7 g/dL (())
== END | disposition home or self-care (01) ==
LOC: ULTRA 06:38
PROVIDERS: Thoracic Surgery (Cardiothoracic Vascular Surgery)
DX: J90 Pleural effusion, not elsewhere classified (principal); R06.02 Shortness of breath; I10 Essential (primary) hypertension; I25.10 Atherosclerotic heart disease of native coronary artery without angina pectoris; E11.9 Type 2 diabetes mellitus without complications; E78.5 Hyperlipidemia, unspecified; Z98.890 Other specified postprocedural states; Z79.899 Other long term (current) drug therapy; Z95.1 Presence of aortocoronary bypass graft; Z88.0 Allergy status to penicillin; Z88.8 Allergy status to other drugs, medicaments and biological substances; Z79.82 Long term (current) use of aspirin

== ENCOUNTER 2017-12-09 18:09 | Emergency (ER) | payer OTHER, MEDICARE ==
[~2017-12-09] VITALS: Ht 167.6 cm; Wt 68.0 kg
--- NOTE | ~2017-12-09 | EKG ---
[address] [place] [address] ELECTROCARDIOGRAM REPORT Name: OSVALDO MCCARTHY Room #: [facility]#: [id number] Admission: 12/09/17 Attend Phys: Discharge: 12/09/17 Date of : 47 Report #: [id number] THIS REPORT FOR: //name// [facility] ED Test Date: 2017-12-09 Test Time: 18:20:47 Pat Name: OSVALDO MCCARTHY Department: Room: Gender: F Community Services Manager: [facility] : 1945 Requested By: Birgit Toussaint Order Number: [id number] MD: Sal Villalobos Measurements Intervals [place] Rate: 70 P: 46 WI: 161 QRS: 34 QRSD: 98 T: 36 QT: 433 QTc: 468 Interpretive Statements Sinus rhythm Probable left atrial enlargement Anteroseptal infarct, age indeterminate Compared to ECG 12/03/2017 17:01:54 No significant changes Electronically Signed On 12-10-2017 8:25:11 CDT by Sal Villalobos [email or web address] <ELECTRONICALLY SIGNED> By: Sal Villalobos MD, [facility] 12/10/17 0825 19 19 Sal Villalobos MD, [facility] /EPI
[~2017-12-09 18:09] MED LIST changes: -TRAMADOL 50 MG50 MG PO
[2017-12-09 18:41] LABS: ABSOLUTE NEUTROPHILS 3.1 thou/uL (1.4-8.2); BASOPHILS 0.2 % (0.0-2.0); EOSINOPHILS 2.1 % (0.0-3.0); LYMPHOCYTES 30.7 % (24.0-44.0); MCH 29.6 pg (26.0-34.0); MCHC 33.3 g/dL (28.0-37.0); MCV 88.7 fL (80.0-100.0); MONOCYTES 8.2 % (1.0-8.0); PLATELET COUNT 258 thou/uL (150-400); POLYS 58.8 % (36.0-66.0); RBC 4.06 mil/uL (4.20-5.00); RDW 14.1 % (10.5-14.5); WBC 5.3 thou/uL (4.0-11.0)
[2017-12-09 19:10] LABS: ANION GAP 6 mmol/L (7-16); BUN 19 mg/dL (7-18); CALCIUM 9.2 mg/dL (8.5-10.1); CHLORIDE 103 mmol/L (98-107); CO2 30 mmol/L (21-32); CREATININE 1.2 mg/dL (0.6-1.0); GLUCOSE 144 mg/dL (74-106); POTASSIUM 3.7 mmol/L (3.5-5.1); SODIUM 139 mmol/L (136-145)
[2017-12-09 19:11] LABS: ALBUMIN 3.1 g/dL (3.4-5.0); SGOT 14 U/L (15-37); SGPT 15 U/L (30-65); TOTAL BILIRUBIN 0.4 mg/dL (<0.1-1.0); TOTAL PROTEIN 7.1 g/dL (6.4-8.2); TROPONIN-I < 0.04 ng/mL (<0.06)
[2017-12-09] MEDS ORDERED: TRAMADOL 50 MG50 MG PO (19:47)
== END 2017-12-09 20:07 | disposition home or self-care (01) ==
LOC: ER 18:09
PROVIDERS: Nurse Practitioner Family
DX: G89.18 Other acute postprocedural pain (principal); J90 Pleural effusion, not elsewhere classified; R07.89 Other chest pain; I10 Essential (primary) hypertension; E78.5 Hyperlipidemia, unspecified; E11.9 Type 2 diabetes mellitus without complications; I25.10 Atherosclerotic heart disease of native coronary artery without angina pectoris; Z88.1 Allergy status to other antibiotic agents; Z88.0 Allergy status to penicillin; Z88.8 Allergy status to other drugs, medicaments and biological substances

== ENCOUNTER → 2017-12-18 | Outpatient (CLI) | payer OTHER, MEDICARE ==
[~2017-12-18] MED LIST changes: +TRAMADOL 50 MG50 MG PO
== END ==
LOC: RAD 10:13
DX: J98.11 Atelectasis (principal); J90 Pleural effusion, not elsewhere classified

== ENCOUNTER 2018-03-14 20:16 | Emergency (ER) | payer OTHER, MEDICARE ==
[~2018-03-14] VITALS: Ht 167.6 cm; Wt 72.1 kg
[2018-03-14] MEDS ORDERED: ATENOLOL 100MG100 MG PO (21:24)
[2018-03-14] MEDS ORDERED: LIVALO4 MG PO (21:25)
[2018-03-14] MEDS ORDERED: VASCEPA1 GM PO (21:26)
== END 2018-03-14 21:29 | disposition home or self-care (01) ==
LOC: ER 20:16
DX: L81.8 Other specified disorders of pigmentation (principal); L98.8 Other specified disorders of the skin and subcutaneous tissue; I10 Essential (primary) hypertension; E78.5 Hyperlipidemia, unspecified; E11.9 Type 2 diabetes mellitus without complications; I25.10 Atherosclerotic heart disease of native coronary artery without angina pectoris; M51.36 Other intervertebral disc degeneration, lumbar region; Z88.1 Allergy status to other antibiotic agents; Z88.0 Allergy status to penicillin; Z88.8 Allergy status to other drugs, medicaments and biological substances

== ENCOUNTER → 2018-12-08 | Outpatient (CLI) | payer OTHER, MEDICARE | LOC: RAD 11:04 | DX: R06.00 Dyspnea, unspecified (principal); R07.9 Chest pain, unspecified ==

== ENCOUNTER → 2020-02-22 | Outpatient (CLI) | payer OTHER, MEDICARE | LOC: SJCVC 11:46 | PROVIDERS: ATTEND Internal Medicine Cardiovascular Disease | DX: R94.31 Abnormal electrocardiogram [ECG] [EKG] (principal); I25.810 Atherosclerosis of coronary artery bypass graft(s) without angina pectoris; E78.00 Pure hypercholesterolemia, unspecified; I10 Essential (primary) hypertension; Z79.899 Other long term (current) drug therapy; Z95.1 Presence of aortocoronary bypass graft ==

== ENCOUNTER → 2020-11-07 | Outpatient (CLI) | payer OTHER, MEDICARE | LOC: SJCVCIMAG 09:08 | PROVIDERS: ATTEND Internal Medicine Cardiovascular Disease | DX: I25.10 Atherosclerotic heart disease of native coronary artery without angina pectoris (principal); E78.00 Pure hypercholesterolemia, unspecified; E78.5 Hyperlipidemia, unspecified; I10 Essential (primary) hypertension; Z95.1 Presence of aortocoronary bypass graft; Z79.899 Other long term (current) drug therapy ==

== ENCOUNTER → 2021-05-23 | Outpatient (CLI) | payer OTHER, MEDICARE | END | disposition home or self-care (01) | LOC: RAD 11:01 | PROVIDERS: ATTEND Family Medicine | DX: T14.90XA Injury, unspecified, initial encounter (principal); R07.81 Pleurodynia; I10 Essential (primary) hypertension; M54.6 Pain in thoracic spine; X58.XXXA Exposure to other specified factors, initial encounter; Y92.89 Other specified places as the place of occurrence of the external cause; Y93.89 Activity, other specified; Y99.8 Other external cause status ==

== ENCOUNTER → 2021-05-24 | Outpatient (CLI) | payer OTHER, MEDICARE | LOC: SJCVC 10:37 | PROVIDERS: ATTEND Internal Medicine Cardiovascular Disease | DX: R94.31 Abnormal electrocardiogram [ECG] [EKG] (principal); I25.10 Atherosclerotic heart disease of native coronary artery without angina pectoris; I10 Essential (primary) hypertension; E78.00 Pure hypercholesterolemia, unspecified; E78.5 Hyperlipidemia, unspecified; E11.9 Type 2 diabetes mellitus without complications; Z95.1 Presence of aortocoronary bypass graft; Z79.899 Other long term (current) drug therapy; Z88.0 Allergy status to penicillin; Z88.1 Allergy status to other antibiotic agents; Z88.8 Allergy status to other drugs, medicaments and biological substances ==